=== PATIENT | male | born 1970 | race Caucasian/White ===

== ENCOUNTER 2020-06-17 07:55 | Day surgery (SDC) | payer OTHER, SELFPAY ==
[2020-06-13 09:48] VITALS: BMI 37.3
--- NOTE | 2020-06-16 10:13 | P.CONAN_ITS ---
Documented by User: Rosemarie Sethi 06/16/20 10:14 HPI - Anesthesia Eval Consult details Narrative: 49yo M for Upper Endoscopy and Colonoscopy [facility] Past Medical History Medical History Arthritis GERD (gastroesophageal reflux disease) Lichen planus Sleep apnea Surgical History Surgical History Hx of shoulder surgery Social History Social History Smoking Status: Never smoker Advance Directives: No Advance Directives Information Provided: Yes Meds Allergies Allergy/AdvReac Type Severity Reaction Status Date / Time No Known Allergies Allergy Unverified 02/18/20 17:16 Home Medications Medication Instructions Recorded Confirmed Type omeprazole 40 mg PO DAILY 06/13/20 06/13/20 History Exam Exam Date and Time: June 16, 2020 1013 Height,Weight and Vital Signs: Height 5 ft 10 in Weight 117.934 kg Assessment and Plan Assessment Anesthesia Assessment: Chart Reviewed Documented by User: Ursula Israel 06/17/20 09:13 [facility] Past Medical History Medical History Arthritis GERD (gastroesophageal reflux disease) Lichen planus Sleep apnea Surgical History Surgical History Hx of shoulder surgery Social History Social History Smoking Status: Never smoker Advance Directives: No Advance Directives Information Provided: Yes Meds Allergies Allergy/AdvReac Type Severity Reaction Status Date / Time No Known Allergies Allergy Unverified 02/18/20 17:16 Home Medications Medication Instructions Recorded Confirmed Type omeprazole 40 mg PO DAILY 06/13/20 06/13/20 History Exam Airway Mallampati Class: II TM Dist: >3cm (Full neck) Neck ROM: Limited Loose/Missing/Broken Teeth: No Heart: RRR Lungs: CTA Assessment and Plan Assessment Anesthesia Assessment: Anesthesia Plan Discussed and Chart Reviewed Final Anesthetic Review NPO: Yes ASA Class: III Final Preanesthetic Review: Meds/Allgs Chart Reviewed, Consent Obtained/Reviewed and Anes Risks/Benef Reviewed Patient Risk: Intermediate Procedure Risk: Low Anesthetic Plan Anesthetic Plan: MAC: (Pt has hx of angioedema, under the care of 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 States he has a swelling on the left side of his tongue that began this morning and is already receding. Exam shows very small protuberence on left edge of tongue. Will postpone EGD and proceed with colonoscopy for today ) Disposition: Standard PACU
[2020-06-17 08:30] VITALS: BP 140/85; PULSE 100; RESP 18; TEMP 36.6; O2SAT 97
[2020-06-17] MEDS: Lactated Ringers 1,000 ML 100 ML IVCONT (08:38)
[2020-06-17 10:05] VITALS: BP 113/77; PULSE 92; RESP 12; TEMP 36.5; O2SAT 93
--- NOTE | 2020-06-17 10:13 | PM.OP ---
Brief Operative Note Date of Service: 06/17/20 Pre-op diagnosis: Screening Post-op diagnosis: other (Colon polyps, Diverticulosis) Procedure: Colonoscopy to cecum with biopsy and removal of polyps, and snare polypectomy Surgeon: Kal Mckeon Anesthesia: MAC Estimated blood loss (mL): 3.0 Pathology: other (A. Ascending colon polyp B. Transverse colon polyps C. Polyp at 50cm D. Polyp at 20cm) Condition: stable Disposition: PACU
[2020-06-17 10:20] VITALS: BP 111/78; PULSE 93; RESP 18; O2SAT 98
[2020-06-17 10:41] VITALS: TEMP 36.7
--- NOTE | 2020-06-17 10:41 | OP_ITS ---
SURGEON: Kal Mckeon MD INDICATIONS: The patient presents for evaluation of colorectal cancer screening. Full consent has been obtained from him for this, including risks of bleeding and perforation. PREOPERATIVE DIAGNOSIS: Colorectal cancer screening. POSTOPERATIVE DIAGNOSIS: PROCEDURE PERFORMED: Colonoscopy to cecum and terminal ileum with snare polypectomy, biopsy and removal of polyps. ESTIMATED BLOOD LOSS: COMPLICATIONS: ANESTHESIA: Monitored anesthesia care. ASSISTANTS: SPECIMENS: POSTOPERATIVE DIAGNOSES: Colorectal cancer screening, colon polyps, diverticulosis, and internal hemorrhoids. DESCRIPTION OF PROCEDURE: The patient was placed in the left lateral decubitus position. The digital rectal exam revealed no abnormalities. The Olympus video pediatric colonoscope was entered into the rectum and advanced easily to the cecum. Once in the cecum, I did identify normal-appearing cecal pouch with appendiceal orifice and a normal-appearing ileocecal valve. The terminal ileum was cannulated and appeared normal. The scope was withdrawn back in the colon. The entire cecum and ileocecal valve appeared normal. The scope was slowly withdrawn assessing all mucosal surfaces carefully. Preparation was excellent. In the ascending colon, there was a flat approximately 3 or 4 mm polyp, which was biopsied and completely removed with cold biopsy forceps. In the transverse colon were multiple polyps ranging in size from 4 mm to 8 mm. The smaller polyp was biopsied and completely removed with cold biopsy forceps. The other polyps were all snared and recovered by suction. All the polypectomy sites appeared clean, without any sign of residual polyp nor bleeding. At 50 cm, there was an approximately 8 mm polyp, which was snared and recovered by suction. The polypectomy site appeared clean, without any sign of residual polyp nor bleeding. At 20 cm there was an approximately 6 mm polyp, which was snared and recovered by suction. The polypectomy site appeared clean, without any sign of residual polyp nor bleeding. I did not visualize any other polyps, colitis, nor angiodysplasia. There was a mild amount of sigmoid diverticulosis. In the rectum, scope was retroflexed visualizing small internal hemorrhoids, but no other pathology. The rectal mucosa appeared normal. The scope was straightened and withdrawn from the patient. He tolerated the procedure well and was returned to recovery area in stable condition. IMPRESSION: 1. Colon polyps. 2. Diverticulosis. 3. Internal hemorrhoids. PLAN: The results of the biopsy will be checked. If these are tubular adenoma, I would recommend a followup colonoscopy in 5 years. If they are all hyperplastic, I would then recommend a followup colonoscopy in 10 years. He was advised not to use any aspirin and NSAIDs for 1 week. Of note, we were planning to do an upper endoscopy today due to chronic reflux but he apparently had developed a hive on his tongue and has some other issues going on with possible angioedema which is currently in the midst of a workup. As such, the anesthesiologist felt it was not safe to proceed due to the potentail for airway compromise. The endoscopy was very elective and he is doing well on his current dose of omeprazole 40 mg daily. I did advise him and his that once that condition has been further evaluated and stabilized, we could then schedule him for the upper endoscopy later this year. MD DOLORES Brown/YINA / [id number] MTDD
== END 2020-06-17 12:44 | disposition home or self-care (01) ==
PROVIDERS: PCP Internal Medicine; Visit Provider Internal Medicine
PROC: (CPT 45385; principal; 2020-06-17 09:00)
DX: Z12.11 Encounter for screening for malignant neoplasm of colon (principal); D12.2 Benign neoplasm of ascending colon; D12.3 Benign neoplasm of transverse colon; D12.5 Benign neoplasm of sigmoid colon; K57.30 Diverticulosis of large intestine without perforation or abscess without bleeding; K64.8 Other hemorrhoids; K21.9 Gastro-esophageal reflux disease without esophagitis; G47.30 Sleep apnea, unspecified; L43.9 Lichen planus, unspecified; Z79.899 Other long term (current) drug therapy
CPT/HCPCS: 45385; 45380; 88305; J1200; J2405